=== PATIENT | male | born 1975 | race Two or more races ===

== ENCOUNTER 2024-05-18 06:37 | Emergency (ER) | payer OTHER ==
[~2024-05-18] VITALS: Ht 162.6 cm; Wt 74.8 kg
[~2024-05-18 06:37] MED LIST: ACET-2605 PO; CEFD300C3 PO; DOXY100C5 PO; FLUC200T8 PO; SULF1TAB48 PO
[2024-05-18 07:42] LABS: BASOPHILS # (AUTO) 0.1 K/UL (0.0-0.2); BASOPHILS % (AUTO) 0.5 % (0.0-2.0); EOSINOPHILS # (AUTO) 0.1 K/uL (0.0-0.7); EOSINOPHILS % (AUTO) 1.1 % (0.0-7.0); HEMATOCRIT 36.4 % (36.7-47.1); HEMOGLOBIN 12.3 g/dL (12.5-16.3); LYMPHOCYTES # (AUTO) 1.3 K/uL (0.8-4.8); LYMPHOCYTES % (AUTO) 12.4 % (20.5-51.5); MEAN CORPUSCULAR HEMOGLOBIN 31.7 uug (23.8-33.4); MEAN CORPUSCULAR HGB CONC 34 g/dL (32.5-36.3); MEAN CORPUSCULAR VOLUME 93.4 fL (73.0-96.2); MONOCYTES # (AUTO) 0.8 K/uL (0.1-1.30); MONOCYTES % (AUTO) 7.3 % (0.0-11.0); NEUTROPHILS # (AUTO) 8.5 K/uL (1.8-8.9); NEUTROPHILS % (AUTO) 78.7 % (38.5-71.5); PLATELET COUNT (AUTO) 220 K/uL (152-348); RED BLOOD CELL COUNT(AUTO) 3.89 MIL/uL (4.06-5.63); RED CELL DISTRIBUTION WIDTH 13.4 % (12.1-16.2); WHITE BLOOD COUNT (AUTO) 10.8 K/uL (3.6-10.2)
[2024-05-18 07:54] LABS: CREATININE 0.7 mg/dL (0.6-1.3); POTASSIUM 3.7 mmol/L (3.5-5.1)
[2024-05-18 07:55] LABS: DIFFERENTIAL COMMENT 1
[2024-05-18 07:59] LABS: ALBUMIN 3.4 g/dL (3.4-5.0); BILIRUBIN,TOTAL 0.5 mg/dL (0.2-1.0); TOTAL PROTEIN, SERUM 7.5 g/dL (6.4-8.2)
[2024-05-18] MEDS ORDERED: [UNRECOGNIZED DRUG - CODE] TP (09:31)
[2024-05-18 10:54] VITALS: BP 116/68; TEMP 98; O2SAT 98
[2024-05-19 19:06] LABS: *CHLAMYDIA NAA Negative (Negative); *GC NAA Negative (Negative); *TRIC.VAG. NAA Negative (Negative)
== END 2024-05-18 10:55 | disposition home or self-care (01) ==
LOC: ER 06:37
DX: I87.2 Venous insufficiency (chronic) (peripheral) (principal); R59.0 Localized enlarged lymph nodes; R60.0 Localized edema; F17.210 Nicotine dependence, cigarettes, uncomplicated; Z59.00 Homelessness unspecified
CPT/HCPCS: 36415; 85025; 87491; A4606; A4663

== ENCOUNTER 2024-05-31 11:32 | Emergency (ER) | payer OTHER ==
[~2024-05-31] VITALS: Ht 165.1 cm; Wt 63.5 kg
[~2024-05-31 11:32] MED LIST changes: -ACET-2605 PO; -CEFD300C3 PO; -DOXY100C5 PO; -FLUC200T8 PO; -SULF1TAB48 PO; +[UNRECOGNIZED DRUG - CODE] TP
[2024-05-31] MEDS ORDERED: KETOROLAC TROMETHAMINE 30 MG INJ ONE (12:31)
[2024-05-31] MEDS: KETOROLAC TROMETHAMINE 30 MG INJ IM ONE (12:32)
[2024-05-31] MEDS ORDERED: NAPR-1164 PO (12:38)
[2024-05-31] MEDS ORDERED: [UNRECOGNIZED DRUG - CODE] TP (12:38)
[2024-05-31 13:08] VITALS: BP 135/81; O2SAT 99
== END 2024-05-31 13:08 | disposition home or self-care (01) ==
LOC: ER 11:32
DX: I87.2 Venous insufficiency (chronic) (peripheral) (principal); M25.551 Pain in right hip; G89.29 Other chronic pain; F17.210 Nicotine dependence, cigarettes, uncomplicated; Z59.00 Homelessness unspecified; Z86.59 Personal history of other mental and behavioral disorders
CPT/HCPCS: 99283; 96372; J1885; A4606; A4663